=== PATIENT | male | born 1990 | race Two or more races ===

== ENCOUNTER 2019-01-25 17:19 | Emergency (ER) | payer MEDICAID, OTHER ==
[~2019-01-25] VITALS: Ht 167.6 cm; Wt 59.0 kg
[2019-01-25 17:19] VITALS: BP 114/70
[~2019-01-25 17:19] MED LIST: ALBU8.5H4 IH
== END 2019-01-25 17:51 | disposition home or self-care (01) ==
LOC: ER 17:21
DX: J45.909 Unspecified asthma, uncomplicated (principal); K08.89 Other specified disorders of teeth and supporting structures; F41.9 Anxiety disorder, unspecified; Z98.890 Other specified postprocedural states; Z88.8 Allergy status to other drugs, medicaments and biological substances; Z79.899 Other long term (current) drug therapy